=== PATIENT | male | born 1980 | race Caucasian/White ===

== ENCOUNTER 2022-11-18 08:59 | Emergency (ER) | payer OTHER, SELFPAY ==
[2022-11-18 09:12] VITALS: BP 162/102; PULSE 86; RESP 16; TEMP 36.9; O2SAT 96; BMI 31.4
--- NOTE | 2022-11-18 09:26 | EXP.UTC ---
Discharge Plan Disposition Patient Disposition: Home, Self-Care Condition: Good Prescriptions Prescriptions: New baclofen 5 mg tablet 5 mg PO TID PRN (Reason: muscle spasm) Qty: 30 0RF Referrals Follow up/Referrals: Provider,Referral, MD [Primary Care Provider] - See instructions Activity Restrictions/Add. Instructions Additional Instructions/Restrictions: Do not take any NSAIDS today. Do not drive while taking Baclofen. Clinical Impressions Clinical Impression: Acute strain of neck muscle Qualifiers: Encounter type: initial encounter Qualified Code(s): S16.1XXA - Strain of muscle, fascia and tendon at neck level, initial encounter Instructions Patient Instructions: DI for Cervical Muscle Strain, DI for Muscle Spasm, DI for Muscle Strain Discharge ED Provider: Cinthia Washburn [facility] General Stated complaint: Back pain, no known accident Mode of Arrival: Ambulatory Source of Information: Patient Limitations: No Limitations Time Seen by Provider: 11/18/22 09:26 Description of Symptoms (Recalled from Triage Doc. by RN): pt c/o neck pain that radiates down his L arm. pt also states it is painful to look up. 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 He reports that he has tried menthol, Lidocaine, and Ibuprofen. He states that the pain has been so bad that he has not been able to sleep. Related Data Previous Rx's Medication Instructions Recorded baclofen 5 mg tablet 5 mg PO TID PRN muscle spasm #30 11/18/22 tabs Allergies Allergy/AdvReac Type Severity Reaction Status Date / Time No Known Allergies Allergy Verified 11/18/22 09:18 Worker's Comp Is this a Worker's Comp case?: No [facility] Disclaimer: The information contained in this section may have been updated after the patient was seen, as this information can be updated by other users. Social History Smoking Status: Unknown if ever smoked alcohol intake: current current occupational status: employed Travel in the last 8 weeks: Inside the [place] ROS Obtained: Yes All systems reviewed & no additional complaints except as documented Constitutional Constitutional: Reports system reviewed and no additional complaints, except as documented Eyes Eyes: Reports system reviewed and no additional complaints, except as documented ENT Ears, Nose, Mouth, and Throat: Reports system reviewed and no additional complaints, except as documented and Reports neck pain Cardiovascular Cardiovascular: Reports system reviewed and no additional complaints, except as documented Respiratory Respiratory: Reports system reviewed and no additional complaints, except as documented Gastrointestinal Gastrointestingal: Reports system reviewed and no additional complaints, except as documented Genitourinary Male Genitourinary: Reports system reviewed and no additional complaints, except as documented Musculoskeletal Musculoskeletal: Reports system reviewed and no additional complaints, except as documented, Reports limited range of motion, Reports muscle cramps, Reports myalgias, Reports neck pain and Reports stiffness Integumentary/Breasts Skin/Breast: Reports system reviewed and no additional complaints, except as documented Neurologic Neurologic: Reports system reviewed and no additional complaints, except as documented Endocrine Endocrine: Reports system reviewed and no additional complaints, except as documented Hematologic/Lymphatic Henatologic/Lymphatic: Reports system reviewed and no additional complaints, except as documented Allergic/Immunologic Allergic/Immunologic: Reports system re
[2022-11-18 09:45] VITALS: BP 0/0; PULSE 86; RESP 16; TEMP 36.9
== END 2022-11-18 09:51 | disposition home or self-care (01) ==
PROVIDERS: Emergency Provider Nurse Practitioner Family
DX: S16.1XXA Strain of muscle, fascia and tendon at neck level, initial encounter (principal); X58.XXXA Exposure to other specified factors, initial encounter
CPT/HCPCS: 96372; 99204; 99212; G0463